=== PATIENT | male | born 1995 | race Caucasian/White ===

== ENCOUNTER 2021-09-11 15:33 | Emergency (ER) | payer OTHER ==
[~2021-09-11] VITALS: Ht 170.2 cm; Wt 76.7 kg
[~2021-09-11 15:33] MED LIST: FLEXERIL PO; HYDROCODONE-AP1 EAC6 PO; IBUPROFEN 800800 M1 PO; NOHOMEMEDICATIONS; PERCOCET 7.5-31 EACH PO; PREDNISONE50 MG PO
[2021-09-11] MEDS ORDERED: AUGMENTIN 875-1 EACH PO (17:56)
[2021-09-11 18:07] VITALS: BP 112/70
== END 2021-09-11 18:08 | disposition home or self-care (01) ==
LOC: M.ERS 15:33
DX: S61.250A Open bite of right index finger without damage to nail, initial encounter (principal); F17.210 Nicotine dependence, cigarettes, uncomplicated; Z88.6 Allergy status to analgesic agent; W55.01XA Bitten by cat, initial encounter; Y93.89 Activity, other specified; Y92.89 Other specified places as the place of occurrence of the external cause; Y99.8 Other external cause status

== ENCOUNTER → 2021-09-14 | Outpatient (CLI) | payer OTHER ==
[~2021-09-14] MED LIST changes: +AUGMENTIN 875-1 EACH PO
== END ==
LOC: M.OPS 07:57 → M.ERS 07:57
PROVIDERS: ATTEND Physician Assistant
DX: Z23 Encounter for immunization (principal)